=== PATIENT | female | born 1965 | race Caucasian/White ===

== ENCOUNTER → 2021-01-15 14:59 | Outpatient (BNVA) | payer OTHER, SELFPAY | PROVIDERS: Visit Provider Advanced Practice Midwife ==

== ENCOUNTER 2021-09-12 07:20 | Outpatient (REF) | payer OTHER, SELFPAY ==
--- NOTE | ~2021-09-12 | MM_ITS ---
EXAMINATION: MM DIAGNOSTIC DIGITAL BREAST TOMOSYNTHESIS, BILATERAL US BREAST LIMITED, RIGHT CLINICAL INFORMATION: Right breast lump felt by patient. The lifetime risk of breast cancer based on the Tyrer-Cuzick Model is 10.4%. COMPARISON: Mammography: 08/04/2020 and studies dating back to 09/12/2011 TECHNIQUE: Digital breast tomosynthesis is performed in both the craniocaudal and mediolateral oblique views along with computer-aided detection (CAD). Synthesized 2-D images are generated from the tomosynthesis. Spot compression view of the left breast in craniocaudal view. Targeted right breast ultrasound. FINDINGS: The breasts are heterogeneously dense, which may obscure small masses (ACR BI-RADS breast composition Category c). There is waxing and waning of circumscribed densities bilaterally consistent with known history of cysts. In the region of palpable abnormality, there is a 2.2 x 1.3 cm well-circumscribed structure. There is a question of architectural distortion within the deep central aspect of the left breast in craniocaudal projection for which spot compression view was performed which demonstrated this to represent superimposition of fibroglandular tissue. Targeted ultrasound over the palpable region of the medial aspect right breast demonstrated a cyst with some floating debris within it measuring 1.5 x 1.0 x 1.4 cm in size. Results are discussed with the patient at time of visit. MM/MM tomosynthesis diagnostic BI IMPRESSION: Bilateral circumscribed densities with waxing and waning consistent with cysts. Palpable abnormality corresponds to a minimally complex cyst. ASSESSMENT: BI-RADS 2: Benign. RECOMMENDATION: Routine annual mammography screening due in 12 months. This patient's information was entered into a reminder system with a target due date for their next mammogram.
== END 2021-09-12 07:21 | disposition home or self-care (01) ==
LOC: HO.MAMMO 07:20
PROVIDERS: Visit Provider Advanced Practice Midwife
DX: N63.10 Unspecified lump in the right breast, unspecified quadrant (principal)
CPT/HCPCS: 76642; 77062; 77066

== ENCOUNTER → 2022-03-26 08:04 | Outpatient (BNVA) | payer OTHER, SELFPAY | PROVIDERS: Visit Provider Advanced Practice Midwife | DX: Z01.419 Encounter for gynecological examination (general) (routine) without abnormal findings (principal) ==

== ENCOUNTER 2022-09-14 08:39 | Outpatient (REF) | payer OTHER, SELFPAY ==
--- NOTE | ~2022-09-14 | MM_ITS ---
EXAMINATION: MM SCREENING DIGITAL BREAST TOMOSYNTHESIS, BILATERAL CLINICAL INFORMATION: Screening. Asymptomatic. The lifetime risk of breast cancer based on the Tyrer-Cuzick Model is 11%. COMPARISON: Mammography: 09/12/2021, 08/04/2020, 12/31/2018, 07/22/2018; right breast ultrasound 09/12/2021, left breast ultrasound 12/31/2018. TECHNIQUE: Digital breast tomosynthesis is performed in both the craniocaudal and mediolateral oblique views along with computer-aided detection (CAD). Synthesized 2D images are generated from the tomosynthesis. FINDINGS: The breasts are heterogeneously dense, which may obscure small masses (ACR BI-RADS breast composition Category c). Fibronodular parenchymal pattern is similar to prior studies. There are chronic fibrocystic changes in both breasts predominantly outer quadrants and decreased since 2018. There is no significant mass or architectural abnormality. No abnormal calcifications. Dermal lesion is again noted overlying the upper right breast on MLO view. The axilla are unremarkable. No significant changes. MM/MM tomosynthesis screening BI IMPRESSION: No mammographic evidence of malignancy. ASSESSMENT: BI-RADS 2: Benign RECOMMENDATION: Routine annual mammography screening. This patient's information was entered into a reminder system with a target due date for their next mammogram.
== END 2022-09-14 08:40 | disposition home or self-care (01) ==
LOC: HO.MAMMO 08:39
PROVIDERS: PCP Internal Medicine; Visit Provider Advanced Practice Midwife
DX: Z12.31 Encounter for screening mammogram for malignant neoplasm of breast (principal)
CPT/HCPCS: 77063; 77067

== ENCOUNTER 2023-06-04 07:59 | Outpatient (AMB) | payer OTHER, SELFPAY ==
[2023-06-04 08:06] VITALS: BP 112/70; BMI 26.7
--- NOTE | 2023-06-04 08:06 | MHC.OFFVIS ---
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 Scribed for RUBEN Caballero by Cortney Person medical billing coordinator, on 06/04/2023 at 8:23 am EST. 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 Experiencing grief because of the recent loss of her dog. Patient admits she tries to eat a healthy diet including Calcium and Vitamin D. She stays active with exercise. Currently sexually active. Admits vaginal itching and irritation. Denies using any new soaps or detergent. STD screening offered; she declines. Denies family hx of colon and ovarian cancer. Last pap smear 12/30/18 Last mammogram 09/14/22 UTD on colonoscopy. [facility] Medical History Breast cyst Surgical History History of endometrial ablation Family History Mother Cervical cancer Maternal Aunt History of breast cancer Social History Alcohol intake: current Alcohol intake frequency: a few times a month Patient Tobacco Use Status: Never used Tobacco Sexual orientation: Straight/Heterosexual Gender identity: Female Female Reproductive History Menstrual Age of Menarche: 19 Total pregnancies: 2 Full term: 2 Number of Living Children: 2 Date of last pap smear: 12/30/18 (negative) Date of Mammogram: 09/14/22 Physical Exam Vital Signs: Last Vital Signs BP 112/70 06/04/23 08:06 BMI result Body Mass Index 26.7 Const Other: wept due to loss of her dog General: cooperative, healthy appearing, no acute distress, well developed and alert Orientation/consciousness: patient oriented x3 HEENT Head: Yes normal to inspection Eyes General: appearance normal, both eyes and all related structures Neck Neck: Yes normal visual inspection Thyroid: Thyroid normal Chest Chest palpation & inspection: normal inspection of the chest Breast/axilla inspection: normal inspection of the breasts (no puckering, dimpling, peau de orange, retraction, discharge, masses) Breast/axilla palpation: normal palpation of the breasts Resp Effort & Inspection: normal respiratory effort GI Inspection: Yes normal to inspection Palpation (GI): Soft to palpation (to palpation) Rectal Exam - Female: deferred General: Yes bladder normal to inspection External Female Exam: normal external appearance and normal appearance of the urethra Speculum Exam - Vagina: normal appearance of the vagina, normal palpation and normal vaginal discharge Speculum Exam - Cervix: normal appearance of the cervix and normal palpation Bimanual exam- vagina & uterus: normal palpation and normal palpation Bimanual Exam- Adnexa, other: normal adnexae and no masses Skin General skin exam: no rashes or lesions noted Neuro General: patient oriented x3 Cognition (Neuro): normal cognition Extrem General: Yes normal to inspection Psych Attitude: cooperative Thought process: Normal thought process present Thought content: Normal thought content present Assessment & Plan Assessment & Plan (1) Encounter for annual routine gynecological examination: Code(s): Z01.419 - Encounter for gynecological examination (general) (routine) without abnormal findings Plan: Discussed: Current recommendations for pap smears per ASCCP guidelines. Breast awareness and periodic self breast exams. Encouraged yearly mammograms. Maintaining a healthy lifestyle including a well balanced diet including Calcium and Vitamin D and routine exercise. Recommend to change cotton underwear more often due or have a spare underwear to hot climate to help resolve vaginal itching. Encouraged patient to sign up for patient portal. Contact office with any PMB. All of her questions and concerns were addressed to the best of my ability RTO in 1 year for AG. (2) Vaginal itching: Code(s): N89.8 - Other specified noninflammatory disorders of vagina Orders: Orders MM tomosynthesis screening BI Today Z12.31 - Encounter for screening mammogram for malignant neoplasm of breast Coding Level of Care Code Est Pt Prev Care 40-64y(57801) Diagnoses Encounter for annual routine gynecological examination Z01.419 Vaginal itching N89.8
== END 2023-06-04 08:33 | disposition home or self-care (01) ==
LOC: HO.HWS 07:59
PROVIDERS: PCP Internal Medicine; Visit Provider Advanced Practice Midwife
DX: Z01.419 Encounter for gynecological examination (general) (routine) without abnormal findings (principal); N89.8 Other specified noninflammatory disorders of vagina
CPT/HCPCS: 99396

== ENCOUNTER → 2023-06-04 07:59 | Outpatient (BNVA) | payer OTHER, SELFPAY | PROVIDERS: PCP Internal Medicine; Visit Provider Advanced Practice Midwife ==

== ENCOUNTER 2023-09-15 11:55 | Outpatient (REF) | payer OTHER, SELFPAY ==
--- NOTE | ~2023-09-15 | MM_ITS ---
EXAMINATION: MM SCREENING DIGITAL BREAST TOMOSYNTHESIS, BILATERAL CLINICAL INFORMATION: Screening. Asymptomatic. COMPARISON: Mammography: This study is compared with prior exams dating back to 2019. TECHNIQUE: Digital breast tomosynthesis is performed in both the craniocaudal and mediolateral oblique views along with computer-aided detection (CAD). Synthesized 2D images are generated from the tomosynthesis. FINDINGS: There are scattered areas of fibroglandular density (ACR BI-RADS breast composition Category b). There are no significant masses, abnormal calcifications, or other abnormalities. Few, unchanged, benign, well-circumscribed masses the upper outer quadrant of the left breast and in the right breast are present. The structures of ventricular which represent cysts in the past. MM/MM tomosynthesis screening BI IMPRESSION: No mammographic evidence of malignancy. ASSESSMENT: BI-RADS BI-RADS 2 - Benign Findings RECOMMENDATION: Routine annual mammography screening. 1 year F/U This examination should not preclude the clinical evaluation of a suspicious palpable abnormality. This patient's information was entered into a reminder system with a target due date for their next mammogram.
== END 2023-09-15 11:56 | disposition home or self-care (01) ==
LOC: HO.MAMMO 11:55
PROVIDERS: PCP Internal Medicine; Visit Provider Advanced Practice Midwife
DX: Z12.31 Encounter for screening mammogram for malignant neoplasm of breast (principal)
CPT/HCPCS: 77063; 77067

== ENCOUNTER → 2023-09-15 12:15 | Outpatient (BNV) | payer OTHER, SELFPAY | PROVIDERS: PCP Internal Medicine; Visit Provider Radiology Diagnostic Radiology | DX: Z12.31 Encounter for screening mammogram for malignant neoplasm of breast (principal) | CPT/HCPCS: 77063; 77067 ==

== ENCOUNTER 2023-12-02 09:18 | Outpatient (AMB) | payer OTHER, SELFPAY ==
--- NOTE | 2023-12-02 09:30 | A.OFFPC_ITS ---
Vital Signs 12/02/23 09:32 Height 5 ft 3 in Weight 152 lb BMI 26.9 BP 126/74 Blood Pressure Location Lt brachial Position Sitting Pulse 73 Pulse Source Pulse Oximeter Pulse Oximetry (%) 98 Oxygen Delivery Method Room Air Intake Visit Reasons: Est. care/Requesting Annual PE/ok per Dr. Jamison Intake Note: Pt is here today for Establish Care visit PE. Allergies No Known Allergies Allergy (Verified 12/02/23 09:35) Medication List - Last Reconciled 12/02/23 by Joya Jamison MD dicyclomine 10 mg PO TID PRN valacyclovir 1,000 mg PO DAILY Tobacco use date assessed: 12/02/23 Dental Screening Dental Screen Date: 12/02/23 Did you have a dental visit in the last 12 months?: Yes Did you have a dental problem in the last 6 months where you did not have access to dental care?: No Was dental information given to patient?: Patient has dentist HPI Est. care/Requesting Annual PE/ok per Dr. 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 PFSH Medical History (Updated 12/02/23 @ 11:43 by Joya Jamison MD) Breast cyst Surgical History History of endometrial ablation Family History (Updated 12/02/23 @ 10:07 by Joya Jamison MD) Mother Cervical cancer DM type 2 (diabetes mellitus, type 2) Maternal Aunt History of breast cancer Father Lung cancer Daughter Diabetes mellitus Social History Household Members Other:: , exercise, 2 adult children, works for [employer], Housing: House Alcohol intake: current Alcohol intake frequency: a few times a month Patient Tobacco Use Status: Never used Tobacco e-Cigarette/Vaping Use: Never Used Current occupational status: employed Sexual orientation: Straight/Heterosexual Gender identity: Female Cognitive needs: No Hearing needs: No Vision needs: Yes Female Reproductive History Menstrual Age of Menarche: 19 Questionnaire PHQ-9 Over the last 2 weeks, how often have you been bothered by any of the following problems? 1. Little interest or pleasure in doing things: not at all 2. Feeling down, depressed, or hopeless: not at all 3. Trouble falling or staying asleep, or sleeping too much: not at all 4. Feeling tired or having little energy: not at all 5. Poor appetite or overeating: not at all 6. Feeling bad about yourself - or that you are a failure or have let yourself or your family down: not at all 7. Trouble concentrating on things, such as reading the newspaper or watching television: not at all 8. Moving or speaking so slowly that other people could have noticed. Or the opposite - being so fidgety or restless that you have been moving around a lot more than usual: not at all 9. Thoughts that you would be better off or of hurting yourself in some way: not at all Total score: 0 Depression Screening Interpretation: Negative Depression Screening Done: Yes Source: Developed by Drs. Andrea Alvarado, Marylu Oneil, Zeferino Fisher and colleagues, with an educational melinda from [employer]. Thrive Questionnaire Date Thrive assessed: 12/02/23 I am a: Patient What is your living situation today?: I have a steady place to live Within the past 12 months, did the food you bought not last and you didn't have the money to get more?: Never true Within the past 12 months, did you worry whether your food would run out before you got money to buy more?: Never true Do you have trouble paying for medicines?: No Do you have trouble getting transportation to medical appointments?: No Do you have trouble paying your heating and electricity bill?: No Do you have trouble taking care of your child, family member or friend?: No Do you have trouble with day-to-day activities such as bathing, preparing meals, shopping, managing finances, etc.?: No Are you currently unemployed and looking for a job?: No Are you interested in more education?: No Please select the resources that you would like help with: None AUDIT C Alcohol Use Questionnaire (AUDIT-C) 1. How often do you have a drink containing alcohol?: Monthly or less 2. How many drinks containing alcohol do you have on a typical day when you are drinking?: 1 or 2 3. How often do you have six or more drinks on one occasion?: Never Total Score: 1 WOLFGANG-7 AMB Questionnaire WOLFGANG-7 Date WOLFGANG - 7 assessed: 12/02/23 Feeling nervous, anxious, or on edge: 0 = Not at all Not being able to stop or control worryin = Not at all Worrying too much about different things: 0 = Not at all Trouble relaxin = Not at all Being so restless that it is hard to sit still: 0 = Not at all Becoming easily annoyed or irritable: 0 = Not at all Feeling afraid as if something awful might happen: 0 = Not at all Total WOLFGANG-7 score (0-4 normal; 5-9 mild; 10-14 moderate; 15-21 severe): 0 Source: Developed by Drs. Andrea Alvarado, Marylu Oneil, Zeferino Fisher and colleagues, with an educational melinda from [employer]. Review of Systems Const All systems reviewed & are unremarkable except as noted in HPI and below Reports no additional complaints Eyes Reports no additional complaints ENT Reports no additional complaints Card Reports no additional complaints Resp Reports no additional complaints GI Reports no additional complaints Reports no additional complaints Musc Reports no additional complaints Physical exam (Primary Care) Vital Signs: Last Vital Signs Pulse 73 12/02/23 09:32 BP 126/74 12/02/23 09:32 Pulse Ox 98 12/02/23 09:32 Oxygen Delivery Method Room Air 12/02/23 09:32 BMI result Body Mass Index 26.9 Tobacco/Smoking Status: Tobacco use Status Tobacco use date assessed 12/02/23 12/02/23 09:39 Patient Tobacco Use Status Never used Tobacco 12/02/23 09:39 e-Cigarette/Vaping Use Never Used 12/02/23 09:39 PHQ-9: PHQ-9 Score PHQ-9: Total score 0 12/02/23 09:43 Depression Screening Interpretation: Negative Thrive Assessment: Date of Thrive Assessment Date Thrive assessed 12/02/23 12/02/23 09:43 Const General: no acute distress HENMT Head: Yes normal to inspection Ears: hearing grossly normal bilaterally General nose exam: Normal external nose present Mouth: Normal oral and palatal mucosa present Throat: Yes posterior oropharynx normal Eyes General: appearance normal, both eyes and all related structures Neck Neck: Yes no lymphadenopathy and Yes supple Resp Effort & Inspection: normal respiratory effort Auscultation: clear to auscultation bilaterally Cardio Rhythm: regular rhythm Heart sounds: S1 normal heart sound present and S2 normal heart sound present GI Inspection: Yes normal to inspection Palpation (GI): Soft to palpation Percussion: Yes normal to percussion Auscultation: normal bowel sounds Assessment and Plan Assessment & Plan (1) Encounter for screening mammogram for malignant neoplasm of breast: Comment: 2022 Code(s): Z12.31 - Encounter for screening mammogram for malignant neoplasm of breast (2) Encounter for annual routine gynecological 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 She will have a fasting blood work today. (4) Hx of colonoscopy: Comment: at 52 normal, Code(s): Z98.890 - Other specified postprocedural states (5) IBS (irritable bowel syndrome): Comment: Controlled on dicyclomine prn Code(s): K58.9 - Irritable bowel syndrome without diarrhea (6) Hx of mammogram: Comment: 2022 Code(s): Z.89 - Personal history of other medical treatment Orders: Orders Complete Blood Count Auto Diff Today Z00.00 - Encounter for general adult medical examination without abnormal findings Comprehensive Fraser. Panel Fast Today Z00.00 - Encounter for general adult medical examination without abnormal findings Lipid Panel Today Z00.00 - Encounter for general adult medical examination without abnormal findings TSH reflex Free T4 Today Z00.00 - Encounter for general adult medical examination without abnormal findings Vitamin D 25-OH Total Today Z00.00 - Encounter for general adult medical examination without abnormal findings UA w Microscopic Today Z00.00 - Encounter for general adult medical examination without abnormal findings Medications: New valacyclovir 2 tabl q 12 hrs 1,000 mg PO DAILY 20 tabs 1RF dicyclomine 10 mg PO TID PRN 60 caps 1RF abdominal pain Coding Level of Care Code Est Pt Prev Care 40-64y(19404) Diagnoses Encounter for screening mammogram for malignant neoplasm of breast Z12.31 Encounter for annual routine gynecological examination Z01.419 Annual physical exam Z00.00 Hx of colonoscopy Z98.890 IBS (irritable bowel syndrome) K58.9 Hx of mammogram Z
[2023-12-02 09:32] VITALS: BP 126/74; PULSE 73; O2SAT 98; BMI 26.9
== END 2023-12-02 10:48 | disposition home or self-care (01) ==
PROVIDERS: PCP Internal Medicine; Visit Provider Internal Medicine
DX: Z12.31 Encounter for screening mammogram for malignant neoplasm of breast (principal); Z01.419 Encounter for gynecological examination (general) (routine) without abnormal findings; Z00.00 Encounter for general adult medical examination without abnormal findings; Z98.890 Other specified postprocedural states; K58.9 Irritable bowel syndrome, unspecified; Z92.89 Personal history of other medical treatment
CPT/HCPCS: 99396

== ENCOUNTER 2023-12-02 10:19 | Outpatient (REF) | payer OTHER, SELFPAY ==
[2023-12-02 13:29] LABS: Appearance Urine Clear; Color Urine Yellow; Glucose Urine UA Negative (Negative); Leukocyte Esterase Urine Trace (Negative); Nitrite Urine Negative (Negative); PH 6.5 (5.0-9.0); Specific Gravity - Urine <= 1.005 (1.005-1.025); UMIC TRIGGER UA YES; Urine Blood Negative (Negative); Urine Ketones Negative (Negative); Urine Protein Negative (Neg-Trace)
[2023-12-02 13:30] LABS: MANUAL DIFF FLAG NO
[2023-12-02 13:34] LABS: Basophils Percent Auto 0.8 % (0-2); Eosinophils Absolute Auto 0.1 X10*3/uL (0.0-0.4); Eosinophils Percent Auto 1.9 % (0-4); Hematocrit 43.5 % (37.0-47.0); Hemoglobin 14.1 g/dl (12.0-16.0); Imm Gran Abs Auto 0.01 X10*3/uL (0.00-0.03); Imm Gran Pct Auto 0.2 % (0.0-0.4); Lymphocytes Absolute Auto 1.6 X10*3/uL (1.2-4.9); Mean Corpuscular HGB Conc 32.4 g/dl (31.0-35.0); Mean Corpuscular Hemoglobin 29.4 pg (27.0-33.0); Mean Corpuscular Volume 90.6 fL (80.0-98.0); Mean Platelet Volume 11.4 fL (9.4-12.3); Monocytes Absolute Auto 0.3 X10*3/uL (0.1-1.2); Monocytes Percent Auto 5.9 % (2-11); Neutrophils Absolute Auto 2.7 x10*3/uL (2.0-8.3); Neutrophils Percent Auto 57.2 % (45-73); Platelet Count 279 X10*3/uL (160-400); Red Cell Distribution Width 12.9 % (11.0-16.0); White Blood Count 4.8 X10*3/uL (4.8-10.8)
[2023-12-02 13:45] LABS: Bacteria Urine None Seen (None Seen); Hyaline Casts Urine 0-2 /LPF (0-2); RBC Urine 0-2 /HPF (0-2); Squamous Epithelial Cell Urine 0-2 /HPF (0-2); WBC Urine 0-5 /HPF (0-5)
[2023-12-02 13:58] LABS: Alanine Aminotransferase 17 U/L (0-31); Albumin Level 4.5 g/dL (3.5-5.0); Alkaline Phosphatase 72 U/L (39-117); Anion Gap 12 (12-20); Aspartate Amino Transferase 18 U/L (5-31); Bilirubin Total 0.8 mg/dL (0.0-1.0); Blood Urea Nitrogen 11 mg/dL (9-16); Calcium 9.9 mg/dL (8.4-10.2); Carbon Dioxide 26 mmol/L (22-29); Chloride 106 mmol/L (96-108); Cholesterol 230 mg/dL (<200); Estimated Glomerular Filt Rate > 60; Glucose Fasting 88 mg/dL (60-99); HDL Cholesterol 95 mg/dL (>40); LDL Cholesterol Calculated 124 mg/dL (<100); Potassium 4.4 mmol/L (3.3-5.1); Sodium 140 mmol/L (135-145); Total Protein 7.3 g/dL (6.5-8.0); Triglycerides 57 mg/dL (<150)
[2023-12-02 14:20] LABS: TSH reflex Free T4 0.56 uIU/mL (0.32-4.0); Vitamin D 25-OH Total 64.4 ng/mL (>30)
== END 2023-12-02 10:20 | disposition home or self-care (01) ==
LOC: HO.HMGCLDS 10:19
PROVIDERS: PCP Internal Medicine; Visit Provider Internal Medicine
DX: Z00.00 Encounter for general adult medical examination without abnormal findings (principal)
CPT/HCPCS: 36415; 80053; 80061; 81001; 82306; 84443; 85025

== ENCOUNTER 2024-06-15 08:14 | Outpatient (AMB) | payer OTHER, SELFPAY ==
--- NOTE | 2024-06-15 08:15 | MHC.OFFVIS ---
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 She is doing well with no concerns. Attempting to eat a healthy diet with calcium and vitamin D and stays active with exercise. Currently sexually active. Denies any vaginal dryness or irritation. She reports an occasional fishy odor, not present today. STI testing offered; she declined. Last pap smear; 2018. Last mammogram; 2022. Colonoscopy is UTD. Denies any family history of ovarian or colon cancer FH breast cancer.. PFSH Medical History Breast cyst Surgical History History of endometrial ablation Family History Mother Cervical cancer DM type 2 (diabetes mellitus, type 2) Maternal Aunt History of breast cancer Father Lung cancer Daughter Diabetes mellitus Social History Household Members Other:: , exercise, 2 adult children, works for [employer], Housing: House Alcohol intake: current Alcohol intake frequency: a few times a month Patient Tobacco Use Status: Never used Tobacco e-Cigarette/Vaping Use: Never Used Current occupational status: employed Sexual orientation: Straight/Heterosexual Gender identity: Female Cognitive needs: No Hearing needs: No Vision needs: Yes Female Reproductive History Menstrual Age of Menarche: 19 Menopause type: surgical Total pregnancies: 2 Full term: 1 Premature: 1 Number of Living Children: 2 Date of last pap smear: 12/30/18 (neg pap and hpv) Date of Mammogram: 09/15/23 (Birad 2) Review of Systems Const All systems reviewed & are unremarkable except as noted in HPI and below Reports as per HPI Eyes Reports no additional complaints ENT Reports no additional complaints Card Reports no additional complaints Resp Reports no additional complaints GI Reports as per HPI and Reports no additional complaints Reports as per HPI Musc Reports no additional complaints Skin/Breast Reports as per HPI Neuro Reports no additional complaints Psych Reports no additional complaints Endo Reports no additional complaints Juan/Lymph Reports no additional complaints Aller/Immun Reports no additional complaints Physical Exam Vital Signs: Last Vital Signs BP 108/70 06/15/24 08:16 BMI result Body Mass Index 26.6 Const General: cooperative, healthy appearing, no acute distress, well developed and alert Orientation/consciousness: patient oriented x3 HEENT Head: Yes normal to inspection Eyes General: appearance normal, both eyes and all related structures Neck Neck: Yes normal visual inspection Thyroid: Thyroid normal Chest Chest palpation & inspection: normal inspection of the chest and other (no puckering, dimpling, peau de orange, retraction, discharge, masses) Breast/axilla inspection: normal inspection of the breasts Breast/axilla palpation: normal palpation of the breasts Resp Effort & Inspection: normal respiratory effort GI Inspection: Yes normal to inspection Palpation (GI): Soft to palpation Rectal Exam - Female: deferred General: Yes bladder normal to palpation External Female Exam: normal external appearance and normal appearance of the urethra Speculum Exam - Vagina: normal appearance of the vagina, normal palpation and normal vaginal discharge Speculum Exam - Cervix: normal appearance of the cervix and normal palpation Bimanual exam- vagina & uterus: normal bimanual exam, normal palpation, uterine size normal, bladder normal to palpation, normal palpation and non-tender Bimanual Exam- Adnexa, other: no masses Skin General skin exam: no rashes or lesions noted Rashes: no rashes Neuro General: patient oriented x3 Cognition (Neuro): normal cognition Extrem General: Yes normal to inspection Psych Attitude: cooperative Thought process: Normal thought process present Assessment & Plan Assessment & Plan (1) Encounter for well woman exam with routine gynecological exam: Code(s): Z01.419 - Encounter for gynecological examination (general) (routine) without abnormal findings Category: Medical Plan Discussed: Current recommendations for pap smears per ASCCP guidelines. Breast awareness, periodic self breast exams and yearly mammogram. Maintain a healthy lifestyle, well balanced diet including Calcium 1,200 mg and Vitamin D 600 IU daily, and routine exercise. Consider use of good quality probiotics. Contact the office with any postmenopausal bleeding. Patient verbalizes understanding and agrees to the plan of care. She was given opportunity to ask questions and all questions were answered to the best of my ability. 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 This note is constructed using voice recognition software. While every effort has been made to ensure accuracy, manager business banking errors may have been included. Orders: Orders MM tomosynthesis screening BI Today Z12.31 - Encounter for screening mammogram for malignant neoplasm of breast Coding Level of Care Code Est Pt Prev Care 40-64y(38068) Diagnoses Encounter for well woman exam with routine gynecological exam Z01.419
[2024-06-15 08:16] VITALS: BP 108/70; BMI 26.6
== END 2024-06-15 08:48 | disposition home or self-care (01) ==
LOC: HO.HWS 08:14
PROVIDERS: PCP Internal Medicine; Visit Provider Advanced Practice Midwife
DX: Z01.419 Encounter for gynecological examination (general) (routine) without abnormal findings (principal)
CPT/HCPCS: 99396

== ENCOUNTER 2024-06-15 08:14 | Outpatient (REF) | payer OTHER, SELFPAY ==
[2024-06-17 09:28] LABS: HPV mRNA E6/E7 Not Detected (Not Detected)
== END 2024-06-15 08:15 | disposition home or self-care (01) ==
LOC: HO.LNP 08:14
PROVIDERS: PCP Internal Medicine; Visit Provider Advanced Practice Midwife
DX: Z01.419 Encounter for gynecological examination (general) (routine) without abnormal findings (principal); Z11.51 Encounter for screening for human papillomavirus (HPV)
CPT/HCPCS: 87624; 88175

== ENCOUNTER 2024-09-20 11:45 | Outpatient (REF) | payer OTHER, SELFPAY ==
--- NOTE | ~2024-09-20 | MM_ITS ---
EXAMINATION: MM SCREENING DIGITAL BREAST TOMOSYNTHESIS, BILATERAL CLINICAL INFORMATION: Screening. Asymptomatic. COMPARISON: Mammography: Comparison is made with available priors TECHNIQUE: Digital breast mammography with tomosynthesis is performed in both the craniocaudal and mediolateral oblique views along with computer-aided detection (CAD). FINDINGS: The breasts are heterogeneously dense, which may obscure small masses (ACR BI-RADS breast composition Category c). Bilateral circumscribed oval masses which wax and wane consistent with benign fibrocystic changes. There are no significant masses, abnormal calcifications, or other abnormalities. MM/MM tomosynthesis screening BI IMPRESSION: No mammographic evidence of malignancy. ASSESSMENT: BI-RADS BI-RADS 2 - Benign Findings RECOMMENDATION: Routine annual mammography screening. 1 year F/U This examination should not preclude the clinical evaluation of a suspicious palpable abnormality. This patient's information was entered into a reminder system with a target due date for their next mammogram. Electronically signed by: Wendi Patino DO 09/28/2024 02:24 PM [facility]
== END 2024-09-20 11:46 | disposition home or self-care (01) ==
LOC: HO.MAMMO 11:45
PROVIDERS: Visit Provider Internal Medicine
DX: Z12.31 Encounter for screening mammogram for malignant neoplasm of breast (principal)
CPT/HCPCS: 77063; 77067

== ENCOUNTER → 2024-09-20 12:00 | Outpatient (BNV) | payer OTHER, SELFPAY | PROVIDERS: Visit Provider Internal Medicine | DX: Z12.31 Encounter for screening mammogram for malignant neoplasm of breast (principal) | CPT/HCPCS: 77063; 77067 ==

== ENCOUNTER 2024-12-18 09:28 | Outpatient (REF) | payer OTHER, SELFPAY ==
[2024-12-18 11:56] LABS: MANUAL DIFF FLAG NO
[2024-12-18 12:01] LABS: Basophils Absolute Auto 0.1 X10*3/uL (0.0-0.2); Basophils Percent Auto 1.2 % (0-2); Eosinophils Absolute Auto 0.1 X10*3/uL (0.0-0.4); Eosinophils Percent Auto 2.2 % (0-4); Hematocrit 40.8 % (37.0-47.0); Hemoglobin 13.4 g/dl (12.0-16.0); Imm Gran Abs Auto 0.01 X10*3/uL (0.00-0.03); Imm Gran Pct Auto 0.2 % (0.0-0.4); Lymphocytes Absolute Auto 2.2 X10*3/uL (1.2-4.9); Lymphocytes Percent Auto 44.1 % (20-40); Mean Corpuscular HGB Conc 32.8 g/dl (31.0-35.0); Mean Corpuscular Hemoglobin 29.6 pg (27.0-33.0); Mean Corpuscular Volume 90.3 fL (80.0-98.0); Mean Platelet Volume 11.2 fL (9.4-12.3); Monocytes Absolute Auto 0.4 X10*3/uL (0.1-1.2); Monocytes Percent Auto 7.9 % (2-11); Neutrophils Absolute Auto 2.3 x10*3/uL (2.0-8.3); Neutrophils Percent Auto 44.4 % (45-73); Platelet Count 281 X10*3/uL (160-400); Red Blood Count 4.52 X10*6/uL (4.20-5.50); Red Cell Distribution Width 12.8 % (11.0-16.0); White Blood Count 5.1 X10*3/uL (4.8-10.8)
[2024-12-18 12:22] LABS: Alanine Aminotransferase 17 U/L (0-31); Albumin Level 4.2 g/dL (3.5-5.0); Alkaline Phosphatase 63 U/L (39-117); Anion Gap 12 (12-20); Aspartate Amino Transferase 19 U/L (5-31); Bilirubin Total 0.7 mg/dL (0.0-1.0); Blood Urea Nitrogen 11 mg/dL (9-16); Carbon Dioxide 23 mmol/L (22-29); Chloride 108 mmol/L (96-108); Cholesterol 207 mg/dL (<200); Estimated Glomerular Filt Rate > 60; Glucose Fasting 83 mg/dL (60-99); HDL Cholesterol 75 mg/dL (>40); LDL Cholesterol Calculated 120 mg/dL (<100); Potassium 3.8 mmol/L (3.3-5.1); Sodium 139 mmol/L (135-145); Total Protein 6.9 g/dL (6.5-8.0); Triglycerides 61 mg/dL (<150)
[2024-12-18 12:42] LABS: TSH reflex Free T4 0.66 uIU/mL (0.32-4.0)
== END 2024-12-18 09:29 | disposition home or self-care (01) ==
LOC: HO.HMGCLDS 09:28
PROVIDERS: PCP Internal Medicine; Visit Provider Internal Medicine
DX: Z00.00 Encounter for general adult medical examination without abnormal findings (principal)
CPT/HCPCS: 36415; 80053; 80061; 82306; 84443; 85025

== ENCOUNTER 2025-01-05 12:23 | Outpatient (AMB) | payer OTHER, SELFPAY ==
[2025-01-05 13:05] VITALS: BP 120/78; PULSE 84; RESP 18; TEMP 36.9; O2SAT 96; BMI 27.1
--- NOTE | 2025-01-05 13:05 | A.OFFPC_ITS ---
Vital Signs 01/05/25 13:05 Height 5 ft 3 in Weight 153 lb BMI 27.1 BP 120/78 Blood Pressure Location Lt brachial Position Sitting Respiration 18 Pulse 84 Pulse Source Pulse Oximeter Temp 98.5 F Temp Source Oral Pulse Oximetry (%) 96 Oxygen Delivery Method Room Air Intake Visit Reasons: PE Intake Note: Pt is here today for PE. Allergies No Known Allergies Allergy (Verified 01/05/25 13:06) Medication List - Last Reconciled 01/05/25 by Joya Jamison MD dicyclomine 10 mg PO TID PRN valacyclovir 2,000 mg (2 x 1 gram) PO BID Tobacco use date assessed: 01/05/25 Dental Screening Dental Screen Date: 01/05/25 Did you have a dental visit in the last 12 months?: Yes Did you have a dental problem in the last 6 months where you did not have access to dental care?: No Was dental information given to patient?: Patient has dentist HPI PE HPI Details Pt presents for PE. [facility] Medical History Breast cyst Surgical History History of endometrial ablation Family History Mother Cervical cancer DM type 2 (diabetes mellitus, type 2) Maternal Aunt History of breast cancer Father Lung cancer Daughter Diabetes mellitus Social History Household Members Other:: , exercise, 2 adult children, works for [employer], Housing: House Alcohol intake: current Alcohol intake frequency: a few times a month Patient Tobacco Use Status: Never used Tobacco e-Cigarette/Vaping Use: Never Used service: No Current occupational status: employed Sexual orientation: Straight/Heterosexual Gender identity: Female Cognitive needs: No Hearing needs: No Vision needs: Yes Female Reproductive History Menstrual Age of Menarche: 19 Questionnaire PHQ-9 Over the last 2 weeks, how often have you been bothered by any of the following problems? 1. Little interest or pleasure in doing things: not at all 2. Feeling down, depressed, or hopeless: not at all 3. Trouble falling or staying asleep, or sleeping too much: not at all 4. Feeling tired or having little energy: not at all 5. Poor appetite or overeating: not at all 6. Feeling bad about yourself - or that you are a failure or have let yourself or your family down: not at all 7. Trouble concentrating on things, such as reading the newspaper or watching television: not at all 8. Moving or speaking so slowly that other people could have noticed. Or the opposite - being so fidgety or restless that you have been moving around a lot more than usual: not at all 9. Thoughts that you would be better off or of hurting yourself in some way: not at all Total score: 0 Depression Screening Interpretation: Negative Depression Screening Done: Yes 22972 - PHQ-9 Billing: Yes Source: Developed by Drs. Andrea Alvarado, Marylu Oneil, Zeferino Fisher and colleagues, with an educational melinda from [employer]. Thrive Questionnaire Date Thrive assessed: 01/05/25 I am a: Patient What is your living situation today?: I have a steady place to live Within the past 12 months, did the food you bought not last and you didn't have the money to get more?: Never true Within the past 12 months, did you worry whether your food would run out before you got money to buy more?: Never true Do you have trouble paying for medicines?: No Do you have trouble getting transportation to medical appointments?: No Do you have trouble paying your heating and electricity bill?: No Do you have trouble taking care of your child, family member or friend?: No Do you have trouble with day-to-day activities such as bathing, preparing meals, shopping, managing finances, etc.?: No Are you currently unemployed and looking for a job?: No Are you interested in more education?: No Please select the resources that you would like help with: None Currently or been in a relationship where the following occur: No concerns reported THRIVE Score: 0 AUDIT C Alcohol Use Questionnaire (AUDIT-C) 1. How often do you have a drink containing alcohol?: Never 3. How often do you have six or more drinks on one occasion?: Never Total Score: 0 WOLFGANG-7 AMB Questionnaire WOLFGANG-7 Date WOLFGANG - 7 assessed: 01/05/25 Feeling nervous, anxious, or on edge: 0 = Not at all Not being able to stop or control worryin = Not at all Worrying too much about different things: 0 = Not at all Trouble relaxin = Not at all Being so restless that it is hard to sit still: 0 = Not at all Becoming easily annoyed or irritable: 0 = Not at all Feeling afraid as if something awful might happen: 0 = Not at all Total WOLFGANG-7 score (0-4 normal; 5-9 mild; 10-14 moderate; 15-21 severe): 0 Source: Developed by Drs. Andrea Alvarado, Marylu Oneil, Zeferino Fisher and colleagues, with an educational melinda from [employer]. WOLFGANG-7 Assessment Billing WOLFGANG-7 Assessment Tool: WOLFGANG-7 Assessment 61575 Review of Systems Const All systems reviewed & are unremarkable except as noted in HPI and below Eyes Reports no additional complaints ENT Reports no additional complaints Card Reports no additional complaints Resp Reports no additional complaints GI Reports no additional complaints Reports no additional complaints Physical exam (Primary Care) Vital Signs: Last Vital Signs Temp 98.5 F 01/05/25 13:05 Pulse 84 01/05/25 13:05 Resp 18 01/05/25 13:05 BP 120/78 01/05/25 13:05 Pulse Ox 96 01/05/25 13:05 Oxygen Delivery Method Room Air 01/05/25 13:05 BMI result Body Mass Index 27.1 Tobacco/Smoking Status: Tobacco use Status Tobacco use date assessed 01/05/25 01/05/25 13:06 Patient Tobacco Use Status Never used Tobacco 01/05/25 13:06 e-Cigarette/Vaping Use Never Used 01/05/25 13:05 PHQ-9: PHQ-9 Score PHQ-9: Total score 0 01/05/25 13:06 Depression Screening Interpretation: Negative Thrive Assessment: Date of Thrive Assessment Date Thrive assessed 01/05/25 01/05/25 13:06 Currently or been in a relationship where the following occur: No concerns reported Const General: no acute distress HENMT Ears: hearing grossly normal bilaterally General nose exam: Normal external nose present Face and sinus: Yes normal facial exam Mouth: Normal oral and palatal mucosa present Throat: Yes posterior oropharynx normal Eyes General: appearance normal, both eyes and all related structures Neck Neck: Yes no lymphadenopathy and Yes supple Resp Effort & Inspection: normal respiratory effort Auscultation: clear to auscultation bilaterally Cardio Rhythm: regular rhythm Heart sounds: S1 normal heart sound present and S2 normal heart sound present GI Inspection: Yes normal to inspection Palpation (GI): Soft to palpation Percussion: Yes normal to percussion Auscultation: normal bowel sounds Coding Level of Care Code Est Pt Prev Care 40-64y(59955) Diagnoses Annual physical exam Z00.00 Additional Codes WOLFGANG-7 Assessment Billing - WOLFGANG-7 Assessment Tool: WOLFGANG-7 Assessment 90012 ([id number]) PHQ-9 - 43029 - PHQ-9 Billing: Yes ([id number]) Assessment & Plan Assessment & Plan (1) Annual physical exam: Code(s): Z. - Encounter for general adult medical examination without abnormal f indings Category: Medical Plan: Well-balanced diet regular physical activity discussed with the patient. She is up-to-date with colonoscopy mammogram and a Pap by [facility] patient will return in 1 year for PE Orders: Orders Complete Blood Count Auto Diff 1 Year Z00.00 - Encounter for general adult medical examination without abnormal findings Lipid Panel 1 Year Z00.00 - Encounter for general adult medical examination without abnormal findings Comprehensive [place]. Panel Fast 1 Year Z00.00 - Encounter for general adult medical examination without abnormal findings TSH reflex Free T4 1 Year Z00.00 - Encounter for general adult medical examination without abnormal findings Vitamin D 25-OH Total 1 Year Z00.00 - Encounter for general adult medical examination without abnormal findings Medications: Refilled valacyclovir 2 tabl q 12 hrs 2,000 mg (2 x 1 gram) PO BID 20 tabs 1RF
== END 2025-01-05 13:32 | disposition home or self-care (01) ==
PROVIDERS: PCP Internal Medicine; Visit Provider Internal Medicine
DX: Z00.00 Encounter for general adult medical examination without abnormal findings (principal)

== ENCOUNTER → 2025-01-05 12:23 | Outpatient (BNVA) | payer OTHER, SELFPAY | PROVIDERS: PCP Internal Medicine; Visit Provider Internal Medicine | DX: Z00.00 Encounter for general adult medical examination without abnormal findings (principal) | CPT/HCPCS: 96127 ==

== ENCOUNTER 2025-09-26 11:38 | Outpatient (REF) | payer OTHER, SELFPAY ==
--- NOTE | ~2025-09-26 | MM_ITS ---
EXAMINATION: MM SCREENING DIGITAL BREAST TOMOSYNTHESIS, BILATERAL CLINICAL INFORMATION: Screening. Asymptomatic. COMPARISON: Comparison made to multiple prior, most recent September 20, 2024, and most remote July 22, 2018. TECHNIQUE: Digital breast tomosynthesis is performed in mediolateral oblique and craniocaudal views along with computer-aided detection (CAD). Synthesized 2D images are generated from the tomosynthesis. FINDINGS: BREAST COMPOSITION: The breasts are heterogeneously dense, which may obscure small masses. BILATERAL BREASTS: Bilateral round/oval masses, some of them calcified, compatible with wax and wane pattern of known benign fibrocystic changes. No significant masses, suspicious calcifications or other abnormalities are seen in either breast. MM/MM tomosynthesis screening BI IMPRESSION: BILATERAL BREASTS: Benign, no mammographic evidence of malignancy. Normal interval follow-up is recommended in 12 months. ASSESSMENT: BI-RADS: Category 2: Benign RECOMMENDATION: Routine annual mammography screening. FOLLOW-UP: 1 year F/U This examination should not preclude the clinical evaluation of a suspicious palpable abnormality. This patient's information was entered into a reminder system with a target due date for their next mammogram. Electronically signed by: Emmanuel Narayanan MD 09/27/2025 06:47 PM [facility]
--- OUTSIDE RECORDS SUMMARY | 2025-09-26 14:03 | XMS_ITS ---
Author Name [facility] Organization Unknown Care Team Organization Name Specialty Phone Email Start Date End Da te [facility] 09/24/2022 4
--- OUTSIDE RECORDS SUMMARY | 2025-09-26 14:03 | XMS_ITS | Clinical Summary ---
Author Organization [facility] Address [address] [address] Phone Care Team Providers Care Payroll Secretary Name Role Phone Unavailable Primary Care Provider Unavailabl e Allergies No known active allergies Medications Medication-Free Text Vitamin D 2000 UNIT Tablet, Si tablet Orally Once a day Active multivitamin per tablet as directed Orally Once daily Active Lactobacillus acidophilus Cap Once daily Act frantz Medication-Free Text immodium , Si tab Oral PRN Active omega-3 fatty acids (FISH OIL CONCENTRATE) 1,000 mg Cap Take 1 capsule by mouth daily. Active valACYclovir (VALTREX) 1000 MG tablet Take 1 tablet (1,000 mg total) by mouth 2 (two) times a day as needed. 60 tablet 8 Active dicyclomine (BENTYL) 10 MG capsule TAKE 1 CAPSULE (10 MG TOTAL) BY MOUTH 3 (THREE) TIMES A DAY NEEDED. 90 capsule 9 Active Active Problems Problem Noted Date Diagnosed Date Anxiety 09/18/2018 Irritable bowel syndrome with diarrhea 8 Routine medical exam 09/18/2018 Tammi-menopausal 09/18/2018 Urge incontinence of urine 09/18/2018 Immunizations Immunization Administration Dates Next Due INFLUENZA, SPLIT VIRUS, TRIVALENT PF 09/06/2016, 09/05/2015 INFLUENZA, SPLIT VIRUS, TRIVALENT W/ PRESERVATIV E IM 09/02/2014,08/06/2012 Influenza Quadrivalent MDCK w/Preservative IM Influenza Quadrivalent Preservative Free IM 12/2017 Influenza trivalent preservative free intraderma l 08/27/2013 Influenza, Unspecified Formulation 09/15/2009 Family History Medical History Relation Comments Diabetes mellitus Daughter type 1 Hypertension Father Lung cancer Father Diabetes mellitus Mother Heart attack Mother [place] (smoker) Stroke Mother No Known Problems Son Relation Status Comments Daughter Alive Father Alive Mother Alive Son Alive Social History Tobacco Use Types Packs/Day Years Used Date Smoking Tobacco: Never Smokeless Tobacco: Never Alcohol Use Standard Drinks/Week Comments Yes 0 (1 standard drink = 0.6 oz pur e alcohol) socially/rare Education Answer Date Recorded Are you interested in more education? Not on alex e 03/14/2023 Are you concerned about learning? Not on file 03/14/2023 No 03/14/2023 No 03/14/2023 Digital Access Answer Date Recorded No 04/14/2023 No 04/14/2023 Reliable internet access at home? Not on file 04/14/2023 Device with a working camera? Not on file Comments Unknown Sex and Gender Information Value Date Recorded Sex Assigned at Not on file Legal Sex Female 9:39 PM EDT Gender Identity Not on file Sexual Orientation Not on file Last Filed Vital Signs Vital Sign Reading Time Taken Comments Blood Pressure 110/60 09/18/2018 10:22 AM EDT Pulse 89 09/18/2018 10:22 AM EDT Temperature 36.9 C (98.5 F) 09/18/2018 10:22 AM EDT Respiratory Rate 16 09/18/2018 10:22 AM EDT Oxygen Saturation 96% 09/18/2018 10:22 AM EDT Inhaled Oxygen Concentration - - Weight 64.4 kg (142 lb) 09/18/2018 10:22 AM EDT Height 161.3 cm (5' 3.5 ) 09/18/2018 10:22 AM ED T Body Mass Index 24.76 09/18/2018 10:22 AM EDT Plan of Treatment Health Maintenance Due Date Last Done Comments Adult Td,Tdap Booster 1965 HEPATITIS C SCREENING 1985 HIV ONE-TIME SCREENING (18-65 YEARS) 1985 PAP SMEAR 1988 COLOGUARD 2012 FIT TEST 2012 FOBT 2012 SIGMOIDOSCOPY 2012 VIRTUAL COLONOSCOPY 2012 PNEUMOCOCCAL VACCINES (50+ years) (1 of 1 - PCV) 2017 ZOSTER VACCINES (1 of 2) 2017 DEPRESSION SCREENING 09/18/2019 09/18/2018 MAMMOGRAM 12/31/2020 12/31/2018, 07/22/2018 LIPID PANEL 09/06/2021 09/06/2016 INFLUENZA VACCINE (#1) 2025 0, 09/02/2019, 09/18/2018, Additional history exists COVID-19 VACCINE (2024- season) 2025 12/23/2020, 12/02/2020 COLONOSCOPY 12/17/2026 12/17/2016, 12/17/2016 COLORECTAL CANCER SCREENING 12/17/2026 RSV VACCINE (1 - 1-dose 75+ series) 2042 SMOKING STATUS SCREENING (Once After 26 Yrs) Completed 09/18/2018 HEPATITIS A VACCINES Aged Out No long er eligible based on patient's age to complete this topic HIB VACCINES Aged Out No longer eligi ble based on patient's age to complete this topic MENINGOCOCCAL VACCINES (ACWY) Aged Out No longer eligible based on patient's age to complete this topic MENINGOCOCCAL VACCINES (B) Aged Out N o longer eligible based on patient's age to complete this topic Medical Devices Not on file Procedures Procedure Name Priority Date/Time Associated Diagnosis Comments HM MAMMOGRAPHY Routine 12/31/2018 COLONOSCOPY FOR RESULT ENTRY ONLY Routine 12/17/2016 2:31 PM EST OUTSIDE LDL Routine 09/06/2016 from Last 3 Months or Most Recently Relevant to Health Maintenance Results * MAMMOGRAPHY FOR RESULT ENTRY ONLY (12/31/2018) us Historical Provider HEALTH MAINTENANCE Edited Result - Final * COLONOSCOPY FOR RESULT ENTRY ONLY (12/17/2016 2:31 PM EST) us Historical Provider HEALTH MAINTENANCE Final Result * Outside LDL (09/06/2016) LDL - External 99 50 - 250 mg/ml us Historical Provider LAB BLOOD ORDERABLES Yana l Result from Last 3 Months or Most Recently Relevant to Health Maintenance Insurance [facility] [address] [place] [address] [facility] [address] [place] [place] [address] [place], [place] [address] [facility] Additional Source Comments The information contained in this document represents components of the legal health record. It is not the complete legal health record.[facility]
== END 2025-09-26 11:39 | disposition home or self-care (01) ==
LOC: HO.MAMMO 11:38
PROVIDERS: PCP Internal Medicine; Visit Provider Internal Medicine
DX: Z12.31 Encounter for screening mammogram for malignant neoplasm of breast (principal)
CPT/HCPCS: 77063; 77067

== ENCOUNTER → 2025-09-26 11:45 | Outpatient (BNV) | payer OTHER, SELFPAY | PROVIDERS: PCP Internal Medicine; Visit Provider Radiology Body Imaging | DX: Z12.31 Encounter for screening mammogram for malignant neoplasm of breast (principal) | CPT/HCPCS: 77063; 77067 ==